=== PATIENT | female | born 1995 | race Caucasian/White ===

== ENCOUNTER 2019-12-12 20:02 | Emergency (ER) | payer SELFPAY ==
[~2019-12-12] VITALS: Ht 172.7 cm; Wt 68.0 kg
[2019-12-12 20:11] VITALS: BP 141/78
== END 2019-12-12 21:54 | disposition home or self-care (01) ==
LOC: ER 20:02
DX: K04.7 Periapical abscess without sinus (principal)
CPT/HCPCS: 70486